=== PATIENT | male | born 1980 | race Caucasian/White ===

== ENCOUNTER 2016-02-28 22:27 | Emergency (ER) | payer MEDICAID, SELFPAY ==
[2016-02-29] MEDS ORDERED: HYDROcodone/Acetaminophen 10/325 mg Tablet ONE (00:15)
[2016-02-29] MEDS ORDERED: Diazepam 5 MG TAB ONE (00:15)
[2016-02-29] MEDS ORDERED: Naproxen 500 MG TAB ONE (00:16)
[2016-02-29] MEDS ORDERED: Clindamycin 150 MG CAP ONE (00:16)
[2016-02-29] MEDS ORDERED: Sulfameth/Trimethoprim DS 800-160mg TAB ONE (00:16)
--- NOTE | 2016-02-29 02:20 | PICIS ---
[facility] EMERGENCY RECORD TRIAGE (MonFeb 28, 2016 22:40 SFRE) TRIAGE NOTES: LUMP UNDER LEFT ARM. (MonFeb 28, 2016 22:40 SFRE) PATIENT: NAME: Golden Ware, AGE: 35, GENDER: male, : [facility] 1980, TIME OF GREET: MonFeb 28, 2016 22:28, PREFERRED LANGUAGE: Uzbek, ETHNICITY: Not or , FALL RISK: NO, ECODE BILLING MAP: [facility], SSN: [id number], Zip Code: [address], KG WEIGHT: [phone], PHONE: , , , PERSON ID: [id number], PCP: JUAN FANG. ([place] Feb 28, 2016 22:40 SFRE) COMPLAINT: LUMP UNDER LEFT ARM. ([place] Feb 28, 2016 22:40 SFRE) ADMISSION: URGENCY: 5 Fast Track, ADMISSION SOURCE: Home, TRANSPORT: Walk-in, BED: ED -05. ([place] Feb 28, 2016 22:40 SFRE) PAIN: Patient complains of pain described as, aching, on a scale 0-10 patient rates pain as 8, Location LEFT AXILLA, Pain is constant, Aggravating factors:, Aggravating factors include LIFTING ARM, Pain exacerbated by movement, No relieving factors. (22:50 SFRE) IMMUNIZATIONS: Flu vaccine not up to date, Tetanus immunization up to date, Pneumococcal vaccine not up to date. (22:50 SFRE) SIRS SCORING: Heart Rate 55-109 (0), Temp range 96.8-101.1 (0), respiratory rate 12-24 (0), Mental Status altered: no (0). (22:50 SFRE) TRIAGE SCREENING: Patient denies suicidal ideation, Patient denies presence of domestic violence. (22:50 SFRE) PROVIDERS: TRIAGE NURSE: Katrin Ram RN. ([place] Feb 28, 2016 22:40 SFRE) VITAL SIGNS: BP 171/99, Pulse 102, Resp 18, Temp 98.1, (Tympanic), Pain 8, (Constant), O2 Sat 99, on Room Air, Time 02/28/2016 22:38. (22:38 SFRE) PREVIOUS VISIT ALLERGIES: Depakote, Penicillins, seizure medications. (MonFeb 28, 2016 22:40 SFRE) Depakote, Penicillins, seizure medications. (22:50 SFRE) KNOWN ALLERGIES Depakote Penicillins seizure medications (Unconfirmed) CURRENT MEDICATIONS No recorded medications VITAL SIGNS (22:38 SFRE) VITAL SIGNS: BP: 171/99, Pulse: 102, Resp: 18, Temp: 98.1 (Tympanic), Pain: 8 (Constant), O2 sat: 99 on Room Air, Time: 02/28/2016 22:38. NURSING ASSESSMENT: SKIN (23:21 SFRE) &a-1R&a+25V*p+0X*k3301Z*c202B*c15G*c2P*p-0X&a-25V&a+1R Name: Golden Ware : 1980 M35 MedRec: [id number] AcctNum: [id number] Prepared: MonFeb 29, 2016 02:29 by Interface Page [address] [facility] EMERGENCY RECORD CONSTITUTIONAL: Patient arrives ambulatory, Gait steady, History obtained from patient, Patient appears comfortable, Patient cooperative, Patient alert, Oriented to person, place and time, Skin warm, Skin dry, Skin normal in color, Mucous membranes pink, Mucous membranes moist, Patient is well-groomed, Patient complains of PAIN TO LEFT AXILLA. PAIN: sharp pain, Onset of pain 02/27/2016, intermittent, Pain exacerbated by, palpation, RAISING, Nothing has been tried to alleviate the pain. SKIN: Skin assessment findings include skin warm, Skin dry, Skin normal in color, Inspection findings include signs of infection, to LEFT AXILLA. SAFETY: Side rails up, Cart/Stretcher in lowest position, Family at bedside, Call light within reach, Hospital ID band on. NURSING PROCEDURE: DISCHARGE NOTE (MonFeb 29, 2016 00:38 JODY) DISCHARGE: Patient discharged to home, ambulating without assistance, family driving, accompanied by //partner, Discharge instructions given to patient, Simple or moderate discharge teaching performed, Prescriptions given and instructions on side effects given, Above person(s) verbalized understanding of discharge instructions and follow-up care. BELONGINGS: Belongings and valuables with patient upon arrival to the Emergency Department include:, Belongings and valuables with patient at time of discharge include:, Belongings remain with patient, Valuables remain with patient. SAFETY: Side rails up, Cart/Stretcher in lowest position, Family at bedside, Call light within reach, Hospital ID band on. NURSING PROCEDURE: NURSE NOTES (MonFeb 29, 2016 00:08 SFRE) NURSES NOTES: Shift change report given, to KALINA JACK, Provided opportunity to answer questions. MEDICATION ADMINISTRATION SUMMARY Drug Name: Valium oral, Dose Ordered: 10 mg, Route: Oral, Status: Given, Time: 00:21 02/29/2016, Drug Name: Septra DS, Dose Ordered: 1 tab(s), Route: Oral, Status: Given, Time: 00:21 02/29/2016, Drug Name: [place], Dose Ordered: 10-325 mg, Route: Oral, Status: Given, Time: 00:20 02/29/2016, Drug Name: Naprosyn, Dose Ordered: 500 mg, Route: Oral, Status: Given, Time: 00:20 02/29/2016, Drug Name: clindamycin HCl, Dose Ordered: 600 mg, Route: Oral, Status: Given, Time: 00:19 02/29/2016, Detailed record available in Medication Service section. MEDICATION SERVICE clindamycin HCl: Order: clindamycin HCl - Dose: 600 mg &a-1R&a+25V*p+0X*k8508G*c202B*c15G*c2P*p-0X&a-25V&a+1R Name: Golden Ware : 1980 M35 MedRec: [id number] AcctNum: [id number] Prepared: MonFeb 29, 2016 02:29 by Interface Page [address] [facility] EMERGENCY RECORD : Oral Schedule: Now Ordered by: Jame Murray MD Entered by: Jame Murray MD MonFeb 29, 2016 00:11 , Acknowledged by: Katrin Ram RN MonFeb 29, 2016 00:13 Documented as given by: Katrin Ram RN MonFeb 29, 2016 00:19 Patient, Medication, Dose, Route and Time verified prior to administration. Amount given: 600MG, Site: Medication administered P.O., Correct patient, time, route, dose and medication confirmed prior to administration, Patient advised of actions and side-effects prior to administration, Allergies confirmed and medications reviewed prior to administration, Patient in position of comfort, Side rails up, Cart in lowest position, Family at bedside. Naprosyn: Order: Naprosyn (naproxen) - Dose: 500 mg : Oral Schedule: Now Ordered by: Jame Murray MD Entered by: Jame Murray MD MonFeb 29, 2016 00:10 , Acknowledged by: Katrin Ram RN MonFeb 29, 2016 00:13 Documented as given by: Katrin Ram RN MonFeb 29, 2016 00:20 Patient, Medication, Dose, Route and Time verified prior to administration. Amount given: 500MG, Site: Medication administered P.O., Correct patient, time, route, dose and medication confirmed prior to administration, Patient advised of actions and side-effects prior to administration, Allergies confirmed and medications reviewed prior to administration, Patient in position of comfort, Side rails up, Cart in lowest position, Family at bedside. [place]: Order: [place] (hydrocodone bitartrate/acetaminophen) - Dose: 10-325 mg : Oral Schedule: Now Ordered by: Jame Murray MD Entered by: Jame Murray MD MonFeb 29, 2016 00:10 , Acknowledged by: Katrin Ram RN MonFeb 29, 2016 00:13 Documented as given by: Katrin Ram RN MonFeb 29, 2016 00:20 Patient, Medication, Dose, Route and Time verified prior to administration. Amount given: 1TAB, Site: Medication administered P.O., Correct patient, time, route, dose and medication confirmed prior to administration, Patient advised of actions and side-effects prior to administration, Allergies confirmed and medications reviewed prior to administration, Patient in position of comfort, Side rails up, Cart in lowest position, Family at bedside. Septra DS: Order: Septra DS (sulfamethoxazole/trimethoprim) - Dose: 1 tab(s) : Oral Schedule: Now Ordered by: Jame Murray MD Entered by: Jame Murray MD MonFeb 29, 2016 00:10 , Acknowledged by: Katrin Ram RN MonFeb 29, 2016 00:13 &a-1R&a+25V*p+0X*s3001T*c202B*c15G*c2P*p-0X&a-25V&a+1R Name: Golden Ware : 1980 M35 MedRec: [id number] AcctNum: [id number] Prepared: MonFeb 29, 2016 02:29 by Interface Page [address] [facility] EMERGENCY RECORD Documented as given by: Katrin Ram RN MonFeb 29, 2016 00:21 Patient, Medication, Dose, Route and Time verified prior to administration. Amount given: 1 TAB, Site: Medication administered P.O., Correct patient, time, route, dose and medication confirmed prior to administration, Patient advised of actions and side-effects prior to administration, Allergies confirmed and medications reviewed prior to administration, Patient in position of comfort, Side rails up, Cart in lowest position, Family at bedside. Valium oral: Order: Valium oral (diazepam) - Dose: 10 mg : Oral Schedule: Now Ordered by: Jame Murray MD Entered by: Jame Murray MD MonFeb 29, 2016 00:10 , Acknowledged by: Katrin Ram RN MonFeb 29, 2016 00:13 Documented as given by: Katrin Ram RN MonFeb 29, 2016 00:21 Patient, Medication, Dose, Route and Time verified prior to administration. Amount given: 10MG, Site: Medication administered P.O., Correct patient, time, route, dose and medication confirmed prior to administration, Patient advised of actions and side-effects prior to administration, Allergies confirmed and medications reviewed prior to administration, Patient in position of comfort, Side rails up, Cart in lowest position, Family at bedside. HPI ABSCESS (23:30 LLDO) CHIEF COMPLAINT: Patient presents for evaluation of swelling, Patient presents for evaluation of pain, Denies suspected foreign body, Patient presents for evaluation of dime sized area of vague swelling and tenderness. only vague induration but no discrete mass. HISTORIAN: History provided by patient, History provided by patient's spouse. LOCATION: Symptoms are localized. QUALITY: Pain is dull in nature, described as aching. TIME COURSE: Gradual onset of symptoms, Symptoms are worsening. ASSOCIATED WITH: No associated symptoms, Denies any other complaints. COMPLICATING FACTORS: Complicating factors for wound healing include:. EXACERBATED BY: Patient's condition exacerbated by PALPATION. RELIEVED BY: Patient's condition relieved by nothing. TETANUS: Tetanus status up to date. ROS CONSTITUTIONAL: Negative constitutional review of systems. (MonFeb 29, 2016 00:04 LLDO) EYES: Negative eye review of systems, Historian denies eye pain, denies eye redness, denies eye discharge. (MonFeb 29, 2016 00:09 LLDO) ENT: Negative ears, nose, throat review of systems, Historian &a-1R&a+25V*p+0X*z2325H*c202B*c15G*c2P*p-0X&a-25V&a+1R Name: Godlen Ware : 1980 M35 MedRec: [id number] AcctNum: [id number] Prepared: MonFeb 29, 2016 02:29 by Interface Page [address] [facility] EMERGENCY RECORD denies otalgia, denies rhinorrhea, denies sinus pain, denies sore throat. (MonFeb 29, 2016 00:09 LLDO) MUSCULOSKELETAL: Negative musculoskeletal review of systems, Historian denies arthralgias, denies fall, denies injury, denies myalgias. (MonFeb 29, 2016 00:09 LLDO) NEUROLOGIC: Historian denies confusion, denies dizziness, denies dysphasia, denies focal weakness, denies gait changes, reports headache, denies irritability. right hinduism tenderness. comes and goes for the past year. hurting today. (MonFeb 29, 2016 00:04 LLDO) ALLERGIC/IMMUNOLOGIC: Normal allergy/immunologic system review, Historian denies eczema, denies environmental allergies, denies food allergies. (MonFeb 29, 2016 00:09 LLDO) PSYCHIATRIC: Negative psychiatric review of systems, Historian denies alcohol abuse, denies anxiety, denies depression, denies drug abuse, denies hallucinations. (MonFeb 29, 2016 00:09 LLDO) NOTES: All systems reviewed, negative except as described above. (MonFeb 29, 2016 00:04 LLDO) PAST MEDICAL HISTORY MEDICAL HISTORY: Past medical history includes neurological disease, partial-complex seizures, LAST SEIZURE AT AGE 14. NOT ON MEDICATION, Past medical history includes history of obesity, 370LBS, Flu vaccine not up to date, Tetanus not up to date, Pneumococcal vaccine not up to date, Past medical history includes history of hypertension, Past medical history includes pulmonary disease, pneumonia, GOUT. ARTHRITIS. (22:50 SFRE) MALE SURGICAL HISTORY: LEFT FOURTH FINGER. (22:50 SFRE) PSYCHIATRIC HISTORY: No previous psychiatric history. (22:50 SFRE) SOCIAL HISTORY: drinks socially, rarely, Patient denies drug use, Patient currently uses tobacco, smokes cigarettes, chews tobacco, daily, Patient smokes ABOUT 1 PACK A DAY. (22:50 SFRE) NOTES: Nursing records reviewed, Agree with nursing records, Medication list reviewed. (MonFeb 29, 2016 00:09 LLDO) PHYSICAL EXAM CONSTITUTIONAL: Vital signs reviewed, Patient afebrile, Pulse, tachycardic, 102, Blood pressure, BP ELEVATED, Respiratory rate normal, Patient appears, uncomfortable, Patient appears in pain, in moderate pain distress, INTERMITTENTLY SEVERE, Patient alert and oriented to person, place and time. (MonFeb 29, 2016 00:06 LLDO) HEAD: Head exam included findings of head atraumatic, normocephalic. (MonFeb 29, 2016 00:06 LLDO) EYES: Eye exam normal, Eye exam included findings of eyelids normal to inspection, Pupils equally round and reactive to light, &a-1R&a+25V*p+0X*s5586M*c202B*c15G*c2P*p-0X&a-25V&a+1R Name: Golden Ware : 1980 M35 MedRec: [id number] AcctNum: [id number] Prepared: MonFeb 29, 2016 02:29 by Interface Page [address] [facility] EMERGENCY RECORD Extraocular muscles intact. (MonFeb 29, 2016 00:09 LLDO) ENT: ENT exam normal. (MonFeb 29, 2016 00:06 LLDO) NECK: Neck exam normal. (MonFeb 29, 2016 00:06 LLDO) BACK: Back exam normal, Back exam included findings of normal inspection, range of motion normal. (MonFeb 29, 2016 00:09 LLDO) UPPER EXTREMITY: Upper extremity exam normal, Upper extremity exam included findings of inspection normal, Range of motion normal. (MonFeb 29, 2016 00:09 LLDO) LOWER EXTREMITY: Lower extremity exam normal, Lower extremity exam included findings of inspection normal, Range of motion normal. (MonFeb 29, 2016 00:09 LLDO) NEURO: [place] coma scale 15, Neuro exam findings include patient oriented to person, place and time, Speech normal, Gait normal, Memory normal, Cranial nerves intact, Deep tendon reflexes normal, no focal motor deficits, no focal sensory deficits, no cerebellar deficits, no nystagmus. (MonFeb 29, 2016 00:06 LLDO) SKIN: ABSCESS NOTED ABOVE. (MonFeb 29, 2016 00:06 LLDO) PSYCHIATRIC: Psychiatric exam normal, Psychiatric exam included findings of patient oriented to person place and time, Normal affect, Judgment normal. (MonFeb 29, 2016 00:09 LLDO) EVENTS TRANSFER: Triage to Emergency Main ED -05. (22:40 SFRE) Removed from Emergency Main ED -05. (MonFeb 29, 2016 00:39 JODY) PROBLEM LIST No recorded problems DIAGNOSIS (MonFeb 29, 2016 00:13 LLDO) FINAL: PRIMARY: Superficial skin abscess, L axilla, ADDITIONAL: Headache. DISPOSITION PATIENT: Disposition Type: Discharge, Disposition: *Discharge Home. (MonFeb 29, 2016 00:13 LLDO) Patient left the department. (MonFeb 29, 2016 00:39 JODY) INSTRUCTION (MonFeb 29, 2016 00:48 LLDO) DISCHARGE: ABSCESS, ABX ONLY, HEADACHE, UNSPECIFIED. FOLLOWUP: Follow up with Primary Care Physician in 7-10 days. SPECIAL: Follow-up with your PCP. PRESCRIPTION clindamycin HCl: CAPSULE (HARD, SOFT, ETC.) : 300 mg : ORAL : Quantity: 1 Unit: tab(s) Route: ORAL Schedule: 4 times a day Dispense: 40 May substitute. Refills: No Refills . (MonFeb 29, 2016 00:17 LLDO) NOTES: No Refills. (MonFeb 29, 2016 00:17 LLDO) &a-1R&a+25V*p+0X*n1652C*c202B*c15G*c2P*p-0X&a-25V&a+1R Name: Golden Ware : 1980 M35 MedRec: [id number] AcctNum: [id number] Prepared: MonFeb 29, 2016 02:29 by Interface Page [address] [facility] EMERGENCY RECORD Septra DS: TABLET : 800 mg-160 mg : ORAL : Quantity: 1 Unit: tab(s) Route: ORAL Schedule: 2 times a day (before meals) Dispense: 20 May substitute. Refills: No Refills . (MonFeb 29, 2016 00:17 LLDO) NOTES: ^s=No Refills No Refills. (MonFeb 29, 2016 00:17 LLDO) Tylenol-Codeine #3: TABLET : 300 mg-30 mg : ORAL : Quantity: 1-2 Unit: tab(s) Route: ORAL Schedule: every 4 hours prn Dispense: 30 Unit: tab(s) May substitute. Refills: No Refills . (MonFeb 29, 2016 00:17 LLDO) NOTES: ^s=^s=No Refills No Refills No Refills. (MonFeb 29, 2016 00:17 LLDO) Reglan oral: TABLET : 10 mg : ORAL : Quantity: 1 Unit: tab(s) Route: ORAL Schedule: 3 times a day Dispense: 30 Unit: tab(s) May substitute. Refills: 1 . (MonFeb 29, 2016 00:48 LLDO) NOTES: No Refills. (MonFeb 29, 2016 00:48 LLDO) IMAGING (MonFeb 29, 2016 00:39 JODY) *DISCHARGE INSTRUCTIONS RECEIPT: Image captured from scanner. Page 2 added. Image captured from scanner. *SUPPLY CHARGE SHEET: Image captured from scanner. ADMIN (MonFeb 29, 2016 02:18 LLDO) DIGITAL SIGNATURE: MD Murray Lloyd. Montes [place] Oca: JODY=KALINA Johnson, Gracie ALANIS=MD Murray Lloyd SFRE=KALINA Ram, Katrin &a-1R&a+25V*p+0X*o0953Y*c202B*c15G*c2P*p-0X&a-25V&a+1R Name: Golden Ware : 1980 M35 MedRec: [id number] AcctNum: [id number] Prepared: MonFeb 29, 2016 02:29 by Interface Page [address] [facility] MEDICATION RECONCILIATION You were seen in the Emergency Department on: MonFeb 28, 2016 KNOWN ALLERGIES Depakote Penicillins seizure medications (Unconfirmed) MEDICATIONS GIVEN WHILE IN THE EMERGENCY DEPARTMENT Naprosyn (naproxen) - Dose: 500 milligram(s) : Oral [place] (hydrocodone bitartrate/acetaminophen) - Dose: 10-325 milligram(s) : Oral Septra DS (sulfamethoxazole/trimethoprim) - Dose: 1 tab(s) : Oral Valium oral (diazepam) - Dose: 10 milligram(s) : Oral clindamycin HCl - Dose: 600 milligram(s) : Oral Notes from the emergency department Reviewed with family Reviewed with patient Reviewed with family Reviewed with patient Reviewed with family Reviewed with patient PRESCRIPTIONS (4) Printed (4) clindamycin HCl : CAPSULE (HARD, SOFT, ETC.) : 300 mg : ORAL Quantity: 1, Unit: tab(s), Route: ORAL, Schedule: 4 times a day, Dispense: 40 Septra DS : TABLET : 800 mg-160 mg : ORAL Quantity: 1, Unit: tab(s), Route: ORAL, Schedule: 2 times a day (before meals), Dispense: 20 Tylenol-Codeine #3 : TABLET : 300 mg-30 mg : ORAL Quantity: 1-2, Unit: tab(s), Route: ORAL, Schedule: every 4 hours prn, Dispense: 30 Unit: tab(s) &a-1R&a+25V*p+0X*s5450P*c202B*c15G*c2P*p-0X&a-25V&a+1R Name: Golden Ware : 1980 M35 MedRec: [id number] AcctNum: [id number] Prepared: MonFeb 29, 2016 02:29 by Interface pMD [facility]
== END 2016-02-29 00:36 | disposition home or self-care (01) ==
LOC: MADERS 22:27
DX: L02.412 Cutaneous abscess of left axilla (principal); R51 Headache; E66.9 Obesity, unspecified; I10 Essential (primary) hypertension; J18.9 Pneumonia, unspecified organism; M19.90 Unspecified osteoarthritis, unspecified site; F17.210 Nicotine dependence, cigarettes, uncomplicated
CPT/HCPCS: 99283

== ENCOUNTER 2017-03-20 12:50 | Emergency (ER) | payer SELFPAY | END 2017-03-20 13:30 | disposition home or self-care (01) | LOC: MADERS 12:50 | DX: H65.92 Unspecified nonsuppurative otitis media, left ear (principal); E66.9 Obesity, unspecified; I10 Essential (primary) hypertension; M10.9 Gout, unspecified; M19.90 Unspecified osteoarthritis, unspecified site; F17.210 Nicotine dependence, cigarettes, uncomplicated; F17.220 Nicotine dependence, chewing tobacco, uncomplicated | CPT/HCPCS: 99282 ==

== ENCOUNTER 2018-11-07 02:32 | Emergency (ER) | payer SELFPAY ==
[2018-11-07 03:35] LABS: #Basophils 0.1 thou/uL (0.0-0.2); #Eosinphils 0.3 thou/uL (0.0-0.7); #Lymphocytes 3.4 thou/uL (1.20-3.40); #Monocytes 0.6 thou/uL (0.11-0.59); #Neutrophils 7.2 thou/uL (1.40-6.50); %Eosinophils 2.8 % (0.0-10.0); %Lymphocytes 29.4 % (21.0-51.0); %Monocytes 5.1 % (0.0-10.0); %Neutrophils 61.7 % (42.0-75.0); Hemoglobin 16.2 g/dL (14.0-18.0); Mean Corpuscular HGB CONC 33.2 g/dL (32.0-36.0); Mean Corpuscular Hemoglobin 29.4 pg (27.0-31.0); Mean Corpuscular Volume 88.6 fL (78.0-98.0); Mean Platelet Volume 6.8 fL (7.4-10.4); Platelet Count 230 thou/uL (130-400); RBC Distribution Width 12.1 % (11.5-14.5); White Blood Cell (WBC) Count 11.7 thou/uL (4.8-10.8)
[2018-11-07 03:43] LABS: ALT (SGPT) 33 U/L (8-55); AST (SGOT) 15 U/L (5-34); Albumin 4.2 g/dL (3.5-5.0); Alkaline Phosphatase 99 U/L (40-110); Anion Gap 16 mmol/L (10-20); Bilirubin, Total 0.3 mg/dL (0.2-1.2); Calc. Creatinine Clearance 0 mL/min (70-130); Calcium 9.3 mg/dL (7.8-10.44); Carbon Dioxide 23 mmol/L (22-29); Chloride 105 mmol/L (98-107); Estimated GFR-MDRD Greater than 90; Globulin 3.3 g/dL (2.4-3.5); Glucose 95 mg/dL (70-105); Potassium 3.9 mmol/L (3.5-5.1); Protein, Total 7.5 g/dL (6.0-8.3); Sodium 140 mmol/L (136-145)
[2018-11-07 03:54] LABS: BUN (Urea Nitrogen) 17 mg/dL (8.9-20.6)
--- NOTE | 2018-11-07 07:42 | RAD ---
CHEST 1 VIEW: INDICATION: Dyspnea. COMPARISON: None. FINDINGS: No consolidation, pleural effusion, or pneumothorax is evident. Heart size is normal. No acute osse ous abnormality is evident. IMPRESSION: No acute cardiopulmonary abnormality. POS: BH
== END 2018-11-07 05:23 | disposition home or self-care (01) ==
LOC: MADERS 02:32
DX: S29.011A Strain of muscle and tendon of front wall of thorax, initial encounter (principal); E66.9 Obesity, unspecified; I10 Essential (primary) hypertension; M10.9 Gout, unspecified; M19.90 Unspecified osteoarthritis, unspecified site; F17.210 Nicotine dependence, cigarettes, uncomplicated; Z79.899 Other long term (current) drug therapy; X50.9XXA Other and unspecified overexertion or strenuous movements or postures, initial encounter
CPT/HCPCS: 71045; 80053; 83880; 84484; 85025; 85379; 93005

== ENCOUNTER 2022-07-11 22:46 | Emergency (ER) | payer OTHER ==
[2022-07-11] MEDS ORDERED: Ketorolac Tromethamine 30 MG/ML VIAL ONE (23:47)
[2022-07-11] MEDS ORDERED: Dexamethasone 10 MG/ML VIAL ONE (23:47)
[2022-07-12 00:13] LABS: #Basophils 0.1 thou/uL (0.0-0.2); #Eosinphils 0.1 thou/uL (0.0-0.7); #Lymphocytes 2.2 thou/uL (1.20-3.40); #Monocytes 0.7 thou/uL (0.11-0.59); #Neutrophils 12.9 thou/uL (1.40-6.50); %Basophils 0.9 % (0.0-1.0); %Eosinophils 0.9 % (0.0-10.0); %Lymphocytes 13.5 % (21.0-51.0); %Monocytes 4.6 % (0.0-10.0); %Neutrophils 80.2 % (42.0-75.0); Hemoglobin 18.2 g/dL (14.0-18.0); Mean Corpuscular HGB CONC 35.6 g/dL (32.0-36.0); Mean Corpuscular Hemoglobin 31.8 pg (27.0-31.0); Mean Corpuscular Volume 89.2 fl (78.0-98.0); Mean Platelet Volume 9.9 fL (7.4-10.4); Platelet Count 217 10x3/uL (130-400); RBC Distribution Width 12.7 % (11.5-14.5); Red Blood Cell (RBC) Count 5.73 mill/uL (4.70-6.10); White Blood Cell (WBC) Count 16.1 10x3/uL (4.8-10.8)
[2022-07-12 00:29] LABS: ALT (SGPT) 58 U/L (8-55); AST (SGOT) 24 U/L (5-34); Albumin 4.4 g/dL (3.5-5.0); Alkaline Phosphatase 97 U/L (40-110); Anion Gap 14 mmol/L (10-20); BUN (Urea Nitrogen) 13 mg/dL (8.9-20.6); Bilirubin, Total 0.6 mg/dL (0.2-1.2); Calc. Creatinine Clearance 0 mL/min (70-130); Calcium 9.7 mg/dL (7.8-10.44); Carbon Dioxide 26 mmol/L (22-29); Chloride 105 mmol/L (98-107); Estimated GFR 110; Globulin 3.9 g/dL (2.4-3.5); Glucose 89 mg/dL (70-105); Potassium 3.9 mmol/L (3.5-5.1); Protein, Total 8.3 g/dL (6.0-8.3); Sodium 141 mmol/L (136-145); Uric Acid 7.7 mg/dL (3.5-7.2)
[2022-07-12 00:40] LABS: Bilirubin Small (Negative); Blood, Urine Negative (Negative); Clarity Clear (Clear); Glucose, Urine (Dipstick) Negative (Negative); Ketone, Urine Trace mg/dL (Negative); Leukocyte Negative (Negative); Nitrite Negative (Negative); Protein, Urine (Dipstick) Trace mg/dL (Neg-Trace)
[2022-07-12 00:41] LABS: CAUTI Indications for Culture Urological Procedure; RBC/HPF 0-3 HPF (0-3); Squamous Epithelial 0-3 HPF (0-3); WBC/HPF 0-3 HPF (0-3)
[2022-07-12 00:42] LABS: Mucous/LPF 2+ LPF (<2+)
[2022-07-12 00:43] LABS: Urine Culture Reflex Yes Yes
[2022-07-12] MEDS ORDERED: Colchicine 0.6 MG TAB ONE ×2 (01:32→02:19)
[2022-07-12] MEDS ORDERED: Ketorolac Tromethamine 10 MG TAB ONE (02:32)
== END 2022-07-12 02:43 | disposition home or self-care (01) ==
LOC: MADERS 22:46
DX: M10.9 Gout, unspecified (principal); E66.9 Obesity, unspecified; I10 Essential (primary) hypertension; F17.290 Nicotine dependence, other tobacco product, uncomplicated; F17.210 Nicotine dependence, cigarettes, uncomplicated; F17.220 Nicotine dependence, chewing tobacco, uncomplicated; Z79.899 Other long term (current) drug therapy
CPT/HCPCS: 80053; 81001; 84550; 85025; 85652; 86140; 87086; 96374; 96375; J1100; J1885